=== PATIENT | female | born 1930 | race Caucasian/White ===

== ENCOUNTER 2016-06-30 01:20 | Emergency (ER) | payer MEDICARE, OTHER | END 2016-06-30 03:08 | disposition home or self-care (01) | DX: R10.13 Epigastric pain (principal); F03.90 Unspecified dementia, unspecified severity, without behavioral disturbance, psychotic disturbance, mood disturbance, and anxiety; Z85.828 Personal history of other malignant neoplasm of skin ==

== ENCOUNTER 2016-07-11 23:07 | Outpatient (CLI) | payer MEDICARE, OTHER | END 2016-07-11 23:08 | disposition critical access hospital (66) | DX: R41.82 Altered mental status, unspecified (principal) | CPT/HCPCS: A0425; A0429 ==

== ENCOUNTER 2016-07-11 23:30 | Emergency (ER) | payer MEDICARE, OTHER | END 2016-07-12 02:38 | disposition home or self-care (01) | DX: R45.1 Restlessness and agitation (principal); G30.9 Alzheimer's disease, unspecified; F02.81 Dementia in other diseases classified elsewhere, unspecified severity, with behavioral disturbance | CPT/HCPCS: 36415; 80048; 80306; 81001; 84443; 85025; 99283; 99284; G0480 ==

== ENCOUNTER 2016-10-01 12:00 | Outpatient (CLI) | payer MEDICARE, OTHER | END 2016-10-01 12:01 | disposition critical access hospital (66) | LOC: EMS 12:00 | PROVIDERS: ATTEND Surgery | DX: R55 Syncope and collapse (principal) | CPT/HCPCS: A0425; A0429 ==

== ENCOUNTER 2016-10-01 12:19 | Inpatient (IN) | payer MEDICARE, OTHER ==
--- NOTE | 2016-10-01 12:30 | ED Physician Documentation ---
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 denies: Focal weakness, Numbness, Seizure (none reported), Headache, Head injury Endocrine: denies: Easy bruising / bleeding Immunocompromised: denies: Immunocompromised PD PAST MEDICAL HISTORY - Past Medical History Cardiovascular: None Respiratory: None Neuro: Other Endocrine/Autoimmune: None GI: GI bleed : Frequency HEENT: None Psych: Depression, Anxiety Musculoskeletal: None Derm: None - Past Surgical History Past Surgical History: Yes General: Colonoscopy Ortho: Rotator cuff repair /ESCORT BLIND: Dilation and currettage HEENT: Tonsil/Adenoidectomy Derm: Skin cancer surgery - Present Medications Home Medications: Ambulatory Orders Medication Instructions Recorded Confirmed No Known Home Medications [No 06/30/16 10/01/16 Known Home Medications] - Allergies Allergies/Adverse Reactions: Allergies Allergy/AdvReac Type Severity Reaction Status Date / Time No Known Drug Allergies Allergy Verified 10/01/16 12:25 - Social History Does the pt smoke?: No Smoking Status: Former smoker Does the pt drink ETOH?: Yes Does the pt have substance abuse?: No - Immunizations Immunizations are current?: Yes - POLST Patient has POLST: No PD ED PE NORMAL - Vitals Vital signs reviewed: Yes - General General: No: Alert and 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 (confused, knows only her name) - HEENT HEENT: Atraumatic, PERRL - Neck Neck: Supple, no meningeal sign, No bony TTP - Cardiac Cardiac: RRR. 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 No : Alert and 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 Results - Vitals Vitals: Vital Signs - 24 hr 10/01/16 10/01/16 10/01/16 12:22 13:54 14:05 Temperature 36.7 C Heart Rate 68 55 L Respiratory 18 10 L Rate Blood Pressure 160/79 H 173/61 H O2 Saturation 99 100 10/01/16 10/01/16 14:39 15:36 Temperature Heart Rate 56 L 54 L Respiratory 18 18 Rate Blood Pressure 161/85 H 160/69 H O2 Saturation 100 100 Oxygen O2 Source Room air - EKG (time done) 1230 Rate: Rate (enter#) (58) Rhythm: NSR [place]: Normal Intervals: Normal RI Ischemia: Normal ST segments Other comments: Other comments (no delat wave) - Labs Labs: Laboratory Tests 10/01/16 10/01/16 10/01/16 12:31 12:31 12:31 WBC 7.5 RBC 4.69 Hgb 14.2 Hct 42.0 MCV 89.4 MCH 30.3 MCHC 33.9 RDW 13.5 Plt Count 218 MPV 9.3 Neut # 4.2 Lymph # 2.4 [place] # 0.6 Eos # 0.2 Baso # 0.1 Absolute Nucleated RBC 0.00 Nucleated RBCs 0.1 Sodium 142 Potassium 4.3 Chloride 104 Carbon Dioxide 30 Anion Gap 8.0 BUN 20 Creatinine 0.9 Estimated GFR (MDRD) 59 L Glucose 77 Calcium 9.9 Troponin I < 0.04 - Rads (name of study) CTH Radiology: See rad report (atrophic dz) CXR Radiology: See rad report (no acute) PD MEDICAL DECISION MAKING - ED course ED course: recurrent syncope and new heart murmur - will admit for tele and echoi still waiting for CXR and urine to rout infectious source to explain AMS fell several X and AMS so got CTH - No acute process Departure - Departure Disposition: ED Place in Observation Clinical Impression: Altered mental status Syncope Qualifiers: Syncope type: unspecified Qualified Code(s): R55 - Syncope and collapse Condition: Good
[2016-10-01 12:44] LABS: BASOPHILS # (AUTO) 0.1 10^3/uL (0.0-0.1); EOSINOPHILS # (AUTO) 0.2 10^3/uL (0.0-0.7); HGB - HEMOGLOBIN 14.2 g/dL (12.0-16.0); LYMPHOCYTES # (AUTO) 2.4 10^3/uL (1.5-3.5); LYMPHOCYTES % (AUTO) 32.6 %; MEAN CORPUSCULAR HEMOGLOBIN 30.3 pg (27.0-31.0); MEAN CORPUSCULAR HGB CONC 33.9 g/dL (32.0-36.0); MEAN CORPUSCULAR VOLUME 89.4 fL (81.0-99.0); MEAN PLATELET VOLUME 9.3 fL (7.9-10.8); MONOCYTES # (AUTO) 0.6 10^3/uL (0.0-1.0); NEUTROPHILS # (AUTO) 4.2 10^3/uL (1.5-6.6); NEUTROPHILS % (AUTO) 56.4 %; NUCLEATED RED BLOOD CELLS AUTO 0.1 /100WBC; RED BLOOD COUNT 4.69 10^6/uL (4.20-5.40); RED CELL DISTRIBUTION WIDTH 13.5 % (12.0-15.0); UNCORRECTED WHITE BLOOD COUNT 7.5 x10^3/uL; WHITE BLOOD COUNT 7.5 x10^3/uL (4.8-10.8)
[2016-10-01 12:54] LABS: CALCIUM 9.9 mg/dL (8.5-10.3); CREATININE 0.9 mg/dL (0.4-1.0); POTASSIUM 4.3 mmol/L (3.5-5.0)
[2016-10-01] MEDS ORDERED: SODIUM CHLORIDE 0.9% 500 ML IV ONE (14:15)
--- NOTE | 2016-10-01 14:49 | CT Preliminary Report ---
Exam: CT Head W/O IMPRESSION: Generalized age-related cortical atrophic changes without evidence of acute intracranial abnormality. [facility] SITE ID: [id number]
--- NOTE | 2016-10-01 14:51 | CT Report ---
EXAM: CT HEAD EXAM DATE: 10/01/2016 01:12 PM. CLINICAL HISTORY: Recurrent syncope. COMPARISON: 11/11/2015. TECHNIQUE: Multiaxial CT images were obtained from the foramen magnum to the vertex. IV contrast: Non e. Reformats: Coronal. In accordance with CT protocol optimization, one or more of the following dose reduction techniques w ere utilized for this exam: automated exposure control, adjustment of mA and/or KV based on patient s ize, or use of iterative reconstructive technique. FINDINGS: Parenchyma: No intraparenchymal hemorrhage. No evidence of mass, midline shift, or CT findings of acu te infarction. Duarte-white differentiation is distinct. Extraaxial Spaces: Normal for age. No subdural or epidural collections identified. Ventricles: The ventricles and cortical sulci are enlarged, consistent with age-related tissue loss. Sinuses: Imaged paranasal sinuses, orbits, and mastoids show no significant abnormality. Bones: No evidence of fracture or calvarial defect. Other: Diffuse chronic microangiopathic white matter changes are evident. IMPRESSION: Generalized age-related cortical atrophic changes without evidence of acute intracranial abnormality. [facility] Referring Provider Line: [phone] SITE ID: [id number]
--- NOTE | 2016-10-01 15:22 | XRAY Preliminary Report ---
Exam: XR Chest 1 View IMPRESSION: Normal single view chest. [facility] SITE ID: [id number]
--- NOTE | 2016-10-01 15:24 | XRAY Report ---
EXAM: CHEST RADIOGRAPHY EXAM DATE: 10/01/2016 03:02 PM. CLINICAL HISTORY: Ams syncope. COMPARISON: None. TECHNIQUE: 1 view. FINDINGS: Lungs/Pleura: No focal opacities evident. No pleural effusion. No pneumothorax. Mediastinum: Within exam limitations, cardiomediastinal contour is normal. Other: None. IMPRESSION: Normal single view chest. [facility] Referring Provider Line: [phone] SITE ID: [id number]
[2016-10-01] MEDS ORDERED: ONDANSETRON 4 MG/2 ML VIAL IVP PRN (15:46)
[2016-10-01] MEDS ORDERED: SODIUM CHLORIDE FLUSH 0.9% 10 ML SYRINGE IVP PRN (15:46)
[2016-10-01] MEDS ORDERED: ACETAMINOPHEN 325 MG TABLET PO PRN (15:46)
[2016-10-01] MEDS ORDERED: HYDROcod/ACETAM 5/325 MG TABLET PO PRN (15:46)
[2016-10-01] MEDS: SODIUM CHLORIDE 0.9% 1,000 ML IV SCH (17:07)
[2016-10-01] MEDS: SODIUM CHLORIDE FLUSH 0.9% 10 ML SYRINGE IVP SCH (17:12)
[2016-10-01 22:34] LABS: BILIRUBIN,URINE NEGATIVE (NEGATIVE); PH,URINE 6.5 PH (5.0-7.5)
[2016-10-01 22:41] LABS: UA w/ MICROSCOPIC CHARGE YES; UR CULTURE IF IND INDICATED; WBC,URINE >25 /HPF (0-5)
[2016-10-01] MEDS ORDERED: cefTRIAXone 2 GM in SODIUM CHLORIDE 0.9% MINIBAG 100 ML IV SCH (23:00)
[2016-10-01] MEDS ORDERED: OLANZapine 10 MG VIAL IM ONE (23:59)
[2016-10-02] MEDS ORDERED: WATER FOR INJECTION,STERILE 10 ML ONE (00:09)
[2016-10-02] MEDS: SODIUM CHLORIDE FLUSH 0.9% 10 ML SYRINGE IVP SCH (05:52)
[2016-10-02 06:02] LABS: BASOPHILS # (AUTO) 0.1 10^3/uL (0.0-0.1); BASOPHILS % (AUTO) 0.8 %; EOSINOPHILS # (AUTO) 0.2 10^3/uL (0.0-0.7); EOSINOPHILS % (AUTO) 2.9 %; HCT - HEMATOCRIT 44.1 % (37.0-47.0); HGB - HEMOGLOBIN 14.6 g/dL (12.0-16.0); LYMPHOCYTES # (AUTO) 2.7 10^3/uL (1.5-3.5); LYMPHOCYTES % (AUTO) 34.4 %; MEAN CORPUSCULAR HEMOGLOBIN 30.5 pg (27.0-31.0); MEAN CORPUSCULAR HGB CONC 33.2 g/dL (32.0-36.0); MEAN CORPUSCULAR VOLUME 91.9 fL (81.0-99.0); MEAN PLATELET VOLUME 10.2 fL (7.9-10.8); MONOCYTES # (AUTO) 0.7 10^3/uL (0.0-1.0); MONOCYTES % (AUTO) 9.6 %; NEUTROPHILS # (AUTO) 4.1 10^3/uL (1.5-6.6); NEUTROPHILS % (AUTO) 52.3 %; NUCLEATED RED BLOOD CELLS AUTO 0.1 /100WBC; RED CELL DISTRIBUTION WIDTH 13.8 % (12.0-15.0); UNCORRECTED WHITE BLOOD COUNT 7.8 x10^3/uL; WHITE BLOOD COUNT 7.8 x10^3/uL (4.8-10.8)
[2016-10-02 06:15] LABS: ALBUMIN/GLOBULIN RATIO 1.4 (1.0-2.2); BILIRUBIN,TOTAL 0.8 mg/dL (0.2-1.0); CALCIUM 9.3 mg/dL (8.5-10.3); CREATININE 0.9 mg/dL (0.4-1.0); MAGNESIUM 1.9 mg/dL (1.7-2.8); POTASSIUM 3.5 mmol/L (3.5-5.0); TOTAL PROTEIN 7.1 g/dL (6.7-8.2)
--- NOTE | 2016-10-02 07:58 | HISTORY & PHYSICAL EXAMINATION ---
DATE OF ADMISSION: 10/01/2016 CHIEF COMPLAINT: Syncope. HISTORY OF PRESENT ILLNESS: The patient is a very poor historian. She often says throughout the interview that she is just having a problem today, brain does not seem to be working correctly. Most of the history obtained is from the emergency department physician, the patient's is gone and is not reachable at this time. The patient reportedly had 3 episodes of passing out. No injury. No other symptoms associated except a few days ago she started to be a little bit tired and weak. The patient's individual syncopal episodes are not able to be elucidated at this time. REVIEW OF SYSTEMS: She has had no fever, chills. No sore throat. No cough. No chest pain or back pain. She has had no nausea, vomiting, diarrhea. No problems with urination according to . The rest of the complete review of systems is negative except as noted above. PAST MEDICAL HISTORY: Remarkable for a previous GI bleed an undetermined time ago, depression, anxiety, and dementia. PAST SURGICAL HISTORY: She has had a colonoscopy, rotator cuff repair, D and C, tonsillectomy and adenoidectomy, skin cancer surgery. MEDICATIONS: She is not taking any medications. ALLERGIES: NONE. SOCIAL HISTORY: She did smoke some time ago. She still drinks some alcohol but it is not every day. The patient was raised in [place] until age 12, moved to [place]. 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 She had 2 boys. FAMILY HISTORY: No diabetes. There is heart disease in the family on both sides. No cancer that she knows of. Again, the reliability of this information is uncertain. PHYSICAL EXAMINATION GENERAL: The patient is pleasant, interactive but only knows who she is, not clear where she is or anything about her situation, and does not know that she had even the passing out episodes and it appears to be a surprise to her. She is a well-developed and well-nourished, slender lady who appears stated age. VITAL SIGNS: 36.7, 68, 18, 160/79, O2 saturation 99% on room air. EYES: EOMs within normal limits, PERRL, nonicteric. MOUTH AND THROAT: Fair dentition. Moist mucous membranes. No other pathology of the mouth or pharynx. NECK: No lymphadenopathy, no thyromegaly, no JVD or bruits either. CHEST WALL: Nontender. Symmetric. No breast exam done. HEART: She has a systolic murmur along the left sternal border that extends out to the apex. The patient's pulses are equal. LUNGS: Clear, good air movement bilaterally. No wheezes, rales, or rhonchi. ABDOMEN: Soft, flat, no tenderness. No hepatosplenomegaly or masses appreciated. RECTAL/GENITAL: Exam not done. VASCULAR: She has no appreciated pulses at the posterior tibial. No cyanosis. Normal capillary refill. NEURO: Cognition is impaired as noted above. No focal deficits. Motor normal. Sensory normal. Gait not tested. SKIN: Dry. No suspicious lesions or dermatitis on limited exam. LABORATORY: White count 7.5, 14 and 42 hemoglobin and hematocrit, platelets 218 , sodium 142, potassium 4.3, chloride 104, CO2 of 30, BUN 20, creatinine 0.9, glucose 77, calcium 9.9, troponin less than 0.04. Urine has not been collected. EKG: Normal sinus rhythm, normal axis, normal CA, normal ST segments. CHEST X-RAY: No acute changes. Cardiopulmonary disease. SUMMARY: The patient is an 86-year-old female, demented, poor historian who according to had 3 episodes of passing out today. The etiology is unclear. The patient is placed in observation for further studies. 1. Syncope. 2. Hypertension. 3. Dementia. DISCUSSION/DECISION MAKING 1. Syncope. The patient will have telemetry and echocardiogram. Does not appear to be a seizure disorder, but is likely. 2. Hypertension. Will be monitored and medications given if there is excessive rise in her systolic blood pressure. 3. Dementia. The patient is at risk for falls and behavioral changes, which will need to be monitored. Need to also get additional history from the . Will also get a urinalysis to determine if the patient has an infection that may be causing the recent weakness and fatigue. HOSPITAL ISSUES 1. Unable to ascertain code status so she is FULL CODE. 2. Venous thromboembolism prophylaxis will be enoxaparin. 3. Diet will be regular. 4. Activity will be assisted with nursing aides. 5. Tubes and lines, will just have a peripheral IV at this time. 6. Admission status. She is placed in observation, expected to be less than 2 nights. 7. Suspected length of stay is 1 night. 8. Disposition is expected to be home with her . May need to have a discussion about placement in the near future with family. JOB #: [id number] EXT JOB #:[id number] KITTY
[2016-10-02] MEDS ORDERED: ENOXAPARIN 40 MG/0.4 ML SYRINGE SUBQ SCH (09:00)
[2016-10-02] MEDS ORDERED: POLYETHYLENE GLYCOL 3350 17 GM PACKET PO SCH (09:00)
[2016-10-02] MEDS: SODIUM CHLORIDE 0.9% 1,000 ML IV SCH (09:12)
[2016-10-02 09:50] VITALS: BP 159/79
--- NOTE | 2016-10-02 10:42 | Discharge Plan ---
Discharge Plan Disposition: 01 Home, Self Care Condition: Fair Prescriptions: Ciprofloxacin HCl [Cipro] 250 mg PO BID #10 tablet Diet: Regular Activity Restrictions: Activity as Tolerated Shower Restrictions: No Driving Restrictions: Yes (no driving) Instruction Topics: UTI Additional Instructions or Follow Up instructions: drink extra water each day. Take the pi;lls for the bladder infection antil gone. See Dr. Vasquez in the next 7-10 days. Thank you, Dr. Solares No Smoking: If you smoke, Please STOP! Call for help. Follow-up with: Landy Vasquez MD [Primary Care Provider] - 2 Weeks
--- NOTE | 2016-10-02 12:04 | DISCHARGE SUMMARY ---
DATE OF ADMISSION: 10/01/2016 DATE OF DISCHARGE: 10/02/2016 PRIMARY CARE PHYSICIAN: Landy Vasquez MD ADMISSION DIAGNOSES 1. Syncope. 2. Hypertension. 3. Dementia. DISCHARGE DIAGNOSES 1. Syncope of ruled out by history. 2. Generalized weakness, transient, resolved. 3. Hypertension. 4. Dementia, moderate. SPECIAL PROCEDURES: Head CT. IMPRESSION: Generalized age-related cortical atrophy without evidence of acute intracranial abnormali ty. Cardiovascular echo was postponed. HOSPITAL COURSE AND MANAGEMENT: The initial presentation, hospital emergency evaluation, and hospital ist plan are well described in the history and physical, see copy of same. SUMMARY: This is a patient, an 86-year-old female, demented, per her surgeon according to her , had 3 episodes of passing out today. Etiology unclear. The patient is placed on observation for fur ther studies. HOSPITAL COURSE: The patient had no medical problems. She did not sleep through the night, was up and down and despite 5 mg of Zyprexa did not affect her and she was with coaxing directible but had to b e monitored with 1 on 1 observation because of her behavior and risk for fall. The history was clara quiroz in the morning. says she never had any fainting spell, had no fall, she just said she fel t faint at one point. He called to talk to her doctor, doctor was out for the weekend and called the EMS. EMS came, evaluated her and brought her to the hospital. Therefore, she had no syncope and the e chocardiogram was therefore canceled. The telemetry did not display any sustained abnormal rhythms. T he patient's urine collected after her stay in the emergency department was positive for nitrates, gr eater than 25 WBCs, many bacteria. She has a history of urinary tract infections according to the hus band, and she is started on Cipro 250 mg b.i.d. for 5 days. The patient is taking no other medication s on discharge. ALLERGIES: SHE HAS NO KNOWN ALLERGIES. The patient was examined on day of discharge and found ready for discharge. LABORATORY DATA: White count 7.4, 14 and 44 hemoglobin and hematocrit, platelets are 204. Sodium 142, potassium 3.5, chloride 106, CO2 of 25, BUN 19, creatinine 0.9. The patient's glucose is 80, calcium is 9.3, albumin 4.1. Culture is pending. VITAL SIGNS: 36.4, 60, 159/79, 18, 94 room air saturation. The patient is very active and wanting to move without actual purpose as she had all might and needed 1-on-1 surveillance. The patient is to fo llow up with Dr. Vasquez after she finishes the Cipro which she will take twice a day for 5 days. Time spent in discharge activity less than 30 minutes and patient was examined on the day of discharg eFernando JOB #: [id number] EXT JOB #:[id number]
== END 2016-10-02 10:55 | disposition home or self-care (01) | DRG 312 ==
LOC: EDUNIT# → ED 12:19 → MS 15:46
PROVIDERS: ADMIT Internal Medicine; ATTEND Internal Medicine
DX: R55 Syncope and collapse (principal); R41.82 Altered mental status, unspecified; I10 Essential (primary) hypertension; F03.90 Unspecified dementia, unspecified severity, without behavioral disturbance, psychotic disturbance, mood disturbance, and anxiety; R53.1 Weakness; Z87.891 Personal history of nicotine dependence
CPT/HCPCS: 36415; 51701; 70450; 71010; 80048; 80053; 81001; 81003; 83735; 84484; 85025; 87077; 87086; 93005; 93010; 96360; 99284; 99285

== ENCOUNTER 2016-11-02 23:28 | Outpatient (CLI) | payer MEDICARE, OTHER | END 2016-11-02 23:29 | disposition critical access hospital (66) | LOC: EMS 23:28 | PROVIDERS: ATTEND Surgery | DX: R41.82 Altered mental status, unspecified (principal) | CPT/HCPCS: A0425; A0429 ==

== ENCOUNTER 2016-11-02 23:54 | Emergency (ER) | payer MEDICARE, OTHER ==
--- NOTE | 2016-11-03 00:51 | ED Physician Documentation ---
PD HPI ALTERED MENTAL STATUS - Stated complaint Stated Complaint: AMS - Chief complaint Chief Complaint: UTI - History obtained from History obtained from: Patient, Family (spouse) - History of Present Illness Timing - onset: Today (this evening) Timing - duration: Hours Timing - details: Gradual onset Quality / character: Confused, Disoriented, Memory Loss, Agitated [place] status: Alert and 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 (h/o memory loss, but spouse reports she has generally been oriented x 3), Independent Similar symptoms before: Diagnosis (dementia) Recently seen: Emergency Dept - Additional information Additional information: patient presents to ED without c/o but recognizes that her spouse was concerned about her behavior this evening. Per spouse (in ED at bedside), patient became confused as they were at home preparing dinner. He decided to take her to a restaurant to eat, and initially she seemed to improve, but upon returning home, she became increasingly confused and then agitated, and thus he called 911. Patient has had previous ED visits, including last month, for similar problems. Review of Systems Constitutional: reports: Reviewed and negative Cardiac: reports: Reviewed and negative Respiratory: reports: Reviewed and negative GI: reports: Reviewed and negative : denies: Dysuria, Frequency Neurologic: reports: Confused, Altered mental status. 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 HEENT: Tonsil/Adenoidectomy Derm: Skin cancer surgery - Allergies Allergies/Adverse Reactions: Allergies Allergy/AdvReac Type Severity Reaction Status Date / Time No Known Drug Allergies Allergy Verified 10/01/16 12:25 - Social History Does the pt smoke?: No Smoking Status: Former smoker Does the pt drink ETOH?: Yes Does the pt have substance abuse?: No - Immunizations Immunizations are current?: Yes - POLST Patient has POLST: No PD ED PE NORMAL - Vitals Vital signs reviewed: Yes - General General: Alert and 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 (patient is pleasant and conversant but exhibits memory loss (she does not know why she is in ED; does not recall being in this ED previously including no recollection of admission last month)), No acute distress, Well developed/nourished - HEENT HEENT: PERRL, EOMI, Moist mucous membranes - Neck Neck: Supple, no meningeal sign - Cardiac Cardiac: RRR, No murmur - Respiratory Respiratory: No respiratory distress, Clear bilaterally - Abdomen Abdomen: Soft, Non tender - Derm Derm: Normal color, Warm and dry - Neuro Neuro: Alert and 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, 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, No motor deficit, No sensory deficit, Normal speech - Psych Psych: Normal mood, Normal affect Results - Vitals Vitals: Oxygen O2 Source Room air - Labs Labs: Laboratory Tests 11/03/16 11/03/16 11/03/16 01:59 01:59 02:07 WBC 7.8 RBC 4.67 Hgb 14.0 Hct 42.1 MCV 90.2 MCH 30.1 MCHC 33.3 RDW 13.8 Plt Count 206 MPV 9.3 Neut # 4.3 Lymph # 2.6 [place] # 0.6 Eos # 0.3 Baso # 0.1 Absolute Nucleated RBC 0.01 Nucleated RBCs 0.1 Sodium 138 Potassium 3.7 Chloride 102 Carbon Dioxide 28 Anion Gap 8.0 BUN 23 H Creatinine 1.1 H Estimated GFR (MDRD) 47 L Glucose 92 Lactic Acid 0.4 L Calcium 9.2 Urine Color Urine Clarity Urine pH Ur Specific [place] Urine Protein Urine Glucose (UA) Urine Ketones Urine Occult Blood Urine Nitrite Urine Bilirubin Urine Urobilinogen Ur Leukocyte Esterase Ur Microscopic Review Urine Culture Comments 11/03/16 02:40 WBC RBC Hgb Hct MCV MCH MCHC RDW Plt Count MPV Neut # Lymph # [place] # Eos # Baso # Absolute Nucleated RBC Nucleated RBCs Sodium Potassium Chloride Carbon Dioxide Anion Gap BUN Creatinine Estimated GFR (MDRD) Glucose Lactic Acid Calcium Urine Color YELLOW Urine Clarity CLEAR Urine pH 6.0 Ur Specific [place] 1.010 Urine Protein NEGATIVE Urine Glucose (UA) NEGATIVE Urine Ketones NEGATIVE Urine Occult Blood TRACE-LYSE Urine Nitrite NEGATIVE Urine Bilirubin NEGATIVE Urine Urobilinogen 0.2 (NORMAL) Ur Leukocyte Esterase NEGATIVE Ur Microscopic Review NOT INDICATED Urine Culture Comments NOT INDICATED PD MEDICAL DECISION MAKING - ED course Complexity details: reviewed old records, reviewed results, re-evaluated patient , considered differential, d/w patient, d/w family ED course: Patient remained calm and cooperative during ED stay. RN reported to me that after patient arrived, but prior to my assessment, patient gave her maiden name and had difficulty recalling that she was still . By the time of my evaluation, and during the remainder of her stay, she was awake, alert, oriented , conversant and pleasant. She asked appropriate questions and became appropriately concerned when I explained to her that she seems to be having difficulty with her memory. I then had a discussion with her outside of the room regarding disposition. I offered to hold her until the morning for a SW consult, but that this would be appropriate if he did not feel comfortable taking her home (specifically if he feels that she is an immediate danger to herself, others (including him), or if he feels he can no longer take care of her at home and thus to consider placement to NH). He feels comfortable taking her home, will return (call 911) if she worsens, and will contact her PMD to discuss options for home health or placement at NH. He says that patient was clearly unhappy with her PMD when the diagnosis of Alzheimer's dementia was raised. Departure - Departure Disposition: 01 Home, Self Care Clinical Impression: Altered mental status Condition: Good Instructions: ED Confusion Follow-Up: Landy Vasquez MD [Provider Admit Priv/Credential] - Discharge Date/Time: 11/03/16 04:42
[2016-11-03 02:14] VITALS: BP 187/103
[2016-11-03 02:18] LABS: BASOPHILS # (AUTO) 0.1 10^3/uL (0.0-0.1); BASOPHILS % (AUTO) 0.9 %; EOSINOPHILS # (AUTO) 0.3 10^3/uL (0.0-0.7); EOSINOPHILS % (AUTO) 3.2 %; HCT - HEMATOCRIT 42.1 % (37.0-47.0); LYMPHOCYTES # (AUTO) 2.6 10^3/uL (1.5-3.5); LYMPHOCYTES % (AUTO) 32.9 %; MEAN CORPUSCULAR HEMOGLOBIN 30.1 pg (27.0-31.0); MEAN CORPUSCULAR HGB CONC 33.3 g/dL (32.0-36.0); MEAN CORPUSCULAR VOLUME 90.2 fL (81.0-99.0); MEAN PLATELET VOLUME 9.3 fL (7.9-10.8); MONOCYTES # (AUTO) 0.6 10^3/uL (0.0-1.0); MONOCYTES % (AUTO) 8.2 %; NEUTROPHILS # (AUTO) 4.3 10^3/uL (1.5-6.6); NEUTROPHILS % (AUTO) 54.8 %; NUCLEATED RED BLOOD CELLS AUTO 0.1 /100WBC; RED BLOOD COUNT 4.67 10^6/uL (4.20-5.40); RED CELL DISTRIBUTION WIDTH 13.8 % (12.0-15.0); UNCORRECTED WHITE BLOOD COUNT 7.8 x10^3/uL; WHITE BLOOD COUNT 7.8 x10^3/uL (4.8-10.8)
[2016-11-03 02:19] LABS: CALCIUM 9.2 mg/dL (8.5-10.3); CREATININE 1.1 mg/dL (0.4-1.0); POTASSIUM 3.7 mmol/L (3.5-5.0)
[2016-11-03 02:44] LABS: BILIRUBIN,URINE NEGATIVE (NEGATIVE)
[2016-11-03 02:45] LABS: UA CHARGE (STRIP ONLY) YES; UR CULTURE IF IND NOT INDICATED
== END 2016-11-03 04:42 | disposition home or self-care (01) ==
LOC: EDUNIT# → ED 23:54
DX: R41.82 Altered mental status, unspecified (principal); F03.90 Unspecified dementia, unspecified severity, without behavioral disturbance, psychotic disturbance, mood disturbance, and anxiety
CPT/HCPCS: 36415; 80048; 81001; 81003; 83605; 85025; 87086; 99283

== ENCOUNTER 2016-11-13 10:11 | Outpatient (CLI) | payer MEDICARE, OTHER | END 2016-11-13 10:12 | disposition critical access hospital (66) | LOC: EMS 10:11 | PROVIDERS: ATTEND Surgery | DX: R41.0 Disorientation, unspecified (principal) | CPT/HCPCS: A0425; A0429 ==

== ENCOUNTER 2016-11-13 10:33 | Emergency (ER) | payer MEDICARE, OTHER ==
--- NOTE | 2016-11-13 10:49 | ED Physician Documentation ---
PD HPI ALTERED MENTAL STATUS - Stated complaint Stated Complaint: MHE - Chief complaint Chief Complaint: MHE - History obtained from History obtained from: Patient, Family (), EMS - History of Present Illness Timing - duration: Months (patient has had progressive forgetfulness and some wandering from house worsening over many months to 1-2 years. having trouble watching her continually recently. They live alone at home. Today patient wandered out of house and could not find her for an hour. Neighbors reported her wandering around and called EMS.) Timing - details: Gradual onset, Still present, Waxing and waning Quality / character: Disoriented, Memory Loss, Agitated (mildly at times) Associated symptoms: No: Fever, Headache, Dyspnea, Cough, Focal weakness Contributing factors: No: Recent med change, Recent illness, Recent injury Basline status: Ambulatory. No: Alert and 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 (not to time) Similar symptoms before: Diagnosis (dementia) Recently seen: Not recently seen Review of Systems Unable to obtain: Dementia, Other (info from as well) Constitutional: denies: Fever Nose: denies: Congestion Throat: denies: Sore throat Cardiac: denies: Chest pain / pressure Respiratory: denies: Cough GI: denies: Vomiting, Diarrhea : denies: Dysuria Musculoskeletal: denies: Extremity swelling Neurologic: denies: Generalized weakness, Focal weakness, Numbness, Syncope, Headache, Head injury Endocrine: denies: Weight loss Immunocompromised: denies: Immunocompromised PD PAST MEDICAL HISTORY - Past Medical History Past Medical History: Yes Cardiovascular: None Respiratory: None Neuro: Other Endocrine/Autoimmune: None GI: GI bleed : Frequency HEENT: None Psych: Depression, Anxiety Musculoskeletal: None Derm: None - Past Surgical History Past Surgical History: Yes General: Colonoscopy 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 HEENT: Tonsil/Adenoidectomy Derm: Skin cancer surgery - Allergies Allergies/Adverse Reactions: Allergies Allergy/AdvReac Type Severity Reaction Status Date / Time No Known Drug Allergies Allergy Verified 10/01/16 12:25 - Social History Does the pt smoke?: No Smoking Status: Former smoker Does the pt drink ETOH?: Yes Does the pt have substance abuse?: No - Family History Family history: reports: Non contributory - Immunizations Immunizations are current?: Yes - POLST Patient has POLST: No PD ED PE NORMAL - Vitals Vital signs reviewed: Yes - General General: No acute distress, Well developed/nourished, Other (oriented to person and place, she is not sure of time. Does not remember her address. Knows she lives in a house with her . 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, No motor deficit, No sensory deficit, Normal speech - Psych Psych: Normal mood, Normal affect Results - Vitals Vitals: Vital Signs - 24 hr 11/13/16 11/13/16 11/13/16 10:35 13:43 17:47 Temperature 36.9 C Heart Rate 110 H 78 68 Respiratory 18 18 18 Rate Blood Pressure 161/73 H 171/90 H 135/72 H O2 Saturation 98 97 97 Oxygen O2 Source Room air - Labs Labs: Laboratory Tests 11/13/16 11/13/16 11/13/16 11:00 11:00 11:00 WBC 6.2 RBC 4.72 Hgb 14.2 Hct 42.8 MCV 90.6 MCH 30.2 MCHC 33.3 RDW 13.9 Plt Count 224 MPV 9.0 Neut # 3.3 Lymph # 2.2 [place] # 0.5 Eos # 0.1 Baso # 0.1 Absolute Nucleated RBC 0.00 Nucleated RBCs 0.1 Manual Slide Review Indicated Platelet Estimate NORMAL (130-450,000) Platelet Morphology 2+ GIANT PLATELETS RBC Morph Micro Appear NORMAL APPEARANCE ESR Sodium 140 Potassium 4.0 Chloride 104 Carbon Dioxide 28 Anion Gap 8.0 BUN 20 Creatinine 1.0 Estimated GFR (MDRD) 52 L Glucose 93 Calcium 9.6 Magnesium 1.9 Total Bilirubin 0.9 AST 26 ALT 20 Alkaline Phosphatase 43 Total Protein 7.3 Albumin 4.0 Globulin 3.3 Albumin/Globulin Ratio 1.2 Lipase 32 Vitamin B12 995 H Urine Color Urine Clarity Urine pH Ur Specific [place] Urine Protein Urine Glucose (UA) Urine Ketones Urine Occult Blood Urine Nitrite Urine Bilirubin Urine Urobilinogen Ur Leukocyte Esterase Urine RBC Urine WBC Ur Squamous Epith Cells Urine Bacteria Ur Microscopic Review Urine Culture Comments 11/13/16 11/13/16 11:00 22:00 WBC RBC Hgb Hct MCV MCH MCHC RDW Plt Count MPV Neut # Lymph # [place] # Eos # Baso # Absolute Nucleated RBC Nucleated RBCs Manual Slide Review Platelet Estimate Platelet Morphology RBC Morph Micro Appear ESR 4 Sodium Potassium Chloride Carbon Dioxide Anion Gap BUN Creatinine Estimated GFR (MDRD) Glucose Calcium Magnesium Total Bilirubin AST ALT Alkaline Phosphatase Total Protein Albumin Globulin Albumin/Globulin Ratio Lipase Vitamin B12 Urine Color YELLOW Urine Clarity CLOUDY Urine pH 6.0 Ur Specific [place] 1.020 Urine Protein NEGATIVE Urine Glucose (UA) NEGATIVE Urine Ketones NEGATIVE Urine Occult Blood TRACE-LYSE Urine Nitrite POSITIVE H Urine Bilirubin NEGATIVE Urine Urobilinogen 0.2 (NORMAL) Ur Leukocyte Esterase MODERATE H Urine RBC 0-5 Urine WBC >25 H Ur Squamous Epith Cells MANY Squamous H Urine Bacteria Many H Ur Microscopic Review INDICATED Urine Culture Comments NOT INDICATED - Rads (name of study) head CT Radiology: Prelim report reviewed (age related changes; no acute process) PD MEDICAL DECISION MAKING - ED course Complexity details: considered differential, d/w patient, d/w family ( - would like to get placement for the patient as she has had more wandering and some agitation at times. She has Rx of meds from PMD but she does not like to take it, per . Unknown what the med is. ), d/w area development consultant (Development Mechanic , Anayeli, will talk with patient and attempt placement. ), other ([facility] will be able to send out nurse to assess her in the AM (9 AM). Family would like [facility], but they did not have admin there today. Can try in AM, particularly if [facility] does not have space. So patient will stay the night as spouse not comfortable bringing her home with the increased wandering and some agitation. ) Departure - Departure Clinical Impression: Wandering behavior Dementia Qualifiers: Dementia type: unspecified type Dementia behavioral disturbance: without behavioral disturbance Qualified Code(s): F03.90 - Unspecified dementia without behavioral disturbance High blood pressure Qualifiers: Hypertension type: unspecified secondary hypertension Qualified Code(s): I15.9 - Secondary hypertension, unspecified Condition: Stable Record reviewed to determine appropriate education?: Yes Instructions: ED Dementia Caregiver Support
[2016-11-13 11:13] LABS: BASOPHILS # (AUTO) 0.1 10^3/uL (0.0-0.1); BASOPHILS % (AUTO) 1.2 %; EOSINOPHILS # (AUTO) 0.1 10^3/uL (0.0-0.7); EOSINOPHILS % (AUTO) 2.3 %; HCT - HEMATOCRIT 42.8 % (37.0-47.0); HGB - HEMOGLOBIN 14.2 g/dL (12.0-16.0); LYMPHOCYTES # (AUTO) 2.2 10^3/uL (1.5-3.5); LYMPHOCYTES % (AUTO) 35.7 %; MEAN CORPUSCULAR HEMOGLOBIN 30.2 pg (27.0-31.0); MEAN CORPUSCULAR HGB CONC 33.3 g/dL (32.0-36.0); MEAN CORPUSCULAR VOLUME 90.6 fL (81.0-99.0); MONOCYTES # (AUTO) 0.5 10^3/uL (0.0-1.0); NEUTROPHILS # (AUTO) 3.3 10^3/uL (1.5-6.6); NEUTROPHILS % (AUTO) 52.8 %; NUCLEATED RED BLOOD CELLS AUTO 0.1 /100WBC; RED BLOOD COUNT 4.72 10^6/uL (4.20-5.40); RED CELL DISTRIBUTION WIDTH 13.9 % (12.0-15.0); UNCORRECTED WHITE BLOOD COUNT 6.2 x10^3/uL; WHITE BLOOD COUNT 6.2 x10^3/uL (4.8-10.8)
[2016-11-13 11:17] LABS: ALBUMIN/GLOBULIN RATIO 1.2 (1.0-2.2); BILIRUBIN,TOTAL 0.9 mg/dL (0.2-1.0); CALCIUM 9.6 mg/dL (8.5-10.3); MAGNESIUM 1.9 mg/dL (1.7-2.8); TOTAL PROTEIN 7.3 g/dL (6.7-8.2)
[2016-11-13 11:34] LABS: PLATELET ESTIMATE, MANUAL NORMAL (130-450,000) (NORMAL); PLATELET MORPHOLOGY 2+ GIANT PLATELETS (NORMAL)
--- NOTE | 2016-11-13 11:55 | CT Preliminary Report ---
Exam: CT Head W/O IMPRESSION: Generalized age-related cortical atrophic changes without evidence of acute intracranial bleed or hematoma. [facility] SITE ID: [id number]
--- NOTE | 2016-11-13 11:57 | CT Report ---
EXAM: CT HEAD EXAM DATE: 11/13/2016 11:40 AM. CLINICAL HISTORY: Progressive forgetful/confusion. COMPARISON: 10/01/2016. TECHNIQUE: Multiaxial CT images were obtained from the foramen magnum to the vertex. IV contrast: Non e. Reformats: Coronal. In accordance with CT protocol optimization, one or more of the following dose reduction techniques w ere utilized for this exam: automated exposure control, adjustment of mA and/or KV based on patient s ize, or use of iterative reconstructive technique. FINDINGS: Parenchyma: No intraparenchymal hemorrhage. No evidence of mass or midline shift. Duarte-white differen tiation is distinct. Extraaxial Spaces: Normal for age. No subdural or epidural collections identified. Ventricles: The ventricles and cortical sulci are enlarged, consistent with age-related tissue loss. Sinuses: Imaged paranasal sinuses, orbits, and mastoids show no significant abnormality. Bones: No evidence of fracture or calvarial defect. Other: Diffuse chronic microangiopathic white matter changes are evident. IMPRESSION: Generalized age-related cortical atrophic changes without evidence of acute intracranial bleed or hematoma. [facility] Referring Provider Line: [phone] SITE ID: [id number]
[2016-11-13] MEDS ORDERED: LORazepam 0.5 MG TABLET PO STA ×2 (13:14→23:28)
[2016-11-13] MEDS ORDERED: HALOPERIDOL 1 MG TABLET PO STA (13:15)
[2016-11-13] MEDS ORDERED: LORazepam 0.5 MG TABLET ONE ×2 (13:19→23:35)
[2016-11-13 22:10] LABS: BILIRUBIN,URINE NEGATIVE (NEGATIVE)
[2016-11-13 22:21] LABS: UA w/ MICROSCOPIC CHARGE YES
[2016-11-13 22:22] LABS: UR CULTURE IF IND NOT INDICATED; WBC,URINE >25 /HPF (0-5)
[2016-11-13] MEDS ORDERED: HALOPERIDOL 0.5 MG TABLET PO STA (23:29)
[2016-11-13] MEDS ORDERED: NITROFURANTOIN MACRO 100 MG CAPSULE PO ONE (23:35)
[2016-11-13] MEDS ORDERED: NITROFURANTOIN MACRO 100 MG CAPSULE PO SCH (23:45)
--- NOTE | 2016-11-14 07:36 | ED Physician Documentation ---
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 HEENT: Tonsil/Adenoidectomy Derm: Skin cancer surgery - Present Medications Home Medications: Ambulatory Orders Medication Instructions Recorded Confirmed Nitrofurantoin Monohyd/M-Cryst 100 mg PO BID #14 capsule 11/14/16 [Macrobid 100 mg Capsule] - Allergies Allergies/Adverse Reactions: Allergies Allergy/AdvReac Type Severity Reaction Status Date / Time No Known Drug Allergies Allergy Verified 10/01/16 12:25 - Social History Does the pt smoke?: No Smoking Status: Former smoker Does the pt drink ETOH?: Yes Does the pt have substance abuse?: No - Immunizations Immunizations are current?: Yes - POLST Patient has POLST: No Results - Vitals Vitals: Vital Signs - 24 hr 11/13/16 11/14/16 23:17 12:53 Temperature 36.5 C 36.8 C Heart Rate 66 77 Respiratory 20 16 Rate Blood Pressure 176/89 H 148/77 H O2 Saturation 99 99 Oxygen O2 Source Room air - Labs Labs: Laboratory Tests 11/13/16 11/13/16 11/13/16 11:00 11:00 11:00 WBC 6.2 RBC 4.72 Hgb 14.2 Hct 42.8 MCV 90.6 MCH 30.2 MCHC 33.3 RDW 13.9 Plt Count 224 MPV 9.0 Neut # 3.3 Lymph # 2.2 [place] # 0.5 Eos # 0.1 Baso # 0.1 Absolute Nucleated RBC 0.00 Nucleated RBCs 0.1 Manual Slide Review Indicated Platelet Estimate NORMAL (130-450,000) Platelet Morphology 2+ GIANT PLATELETS RBC Morph Micro Appear NORMAL APPEARANCE ESR Sodium 140 Potassium 4.0 Chloride 104 Carbon Dioxide 28 Anion Gap 8.0 BUN 20 Creatinine 1.0 Estimated GFR (MDRD) 52 L Glucose 93 Calcium 9.6 Magnesium 1.9 Total Bilirubin 0.9 AST 26 ALT 20 Alkaline Phosphatase 43 Total Protein 7.3 Albumin 4.0 Globulin 3.3 Albumin/Globulin Ratio 1.2 Lipase 32 Vitamin B12 995 H Urine Color Urine Clarity Urine pH Ur Specific [place] Urine Protein Urine Glucose (UA) Urine Ketones Urine Occult Blood Urine Nitrite Urine Bilirubin Urine Urobilinogen Ur Leukocyte Esterase Urine RBC Urine WBC Ur Squamous Epith Cells Urine Bacteria Ur Microscopic Review Urine Culture Comments 11/13/16 11/13/16 11:00 22:00 WBC RBC Hgb Hct MCV MCH MCHC RDW Plt Count MPV Neut # Lymph # [place] # Eos # Baso # Absolute Nucleated RBC Nucleated RBCs Manual Slide Review Platelet Estimate Platelet Morphology RBC Morph Micro Appear ESR 4 Sodium Potassium Chloride Carbon Dioxide Anion Gap BUN Creatinine Estimated GFR (MDRD) Glucose Calcium Magnesium Total Bilirubin AST ALT Alkaline Phosphatase Total Protein Albumin Globulin Albumin/Globulin Ratio Lipase Vitamin B12 Urine Color YELLOW Urine Clarity CLOUDY Urine pH 6.0 Ur Specific [place] 1.020 Urine Protein NEGATIVE Urine Glucose (UA) NEGATIVE Urine Ketones NEGATIVE Urine Occult Blood TRACE-LYSE Urine Nitrite POSITIVE H Urine Bilirubin NEGATIVE Urine Urobilinogen 0.2 (NORMAL) Ur Leukocyte Esterase MODERATE H Urine RBC 0-5 Urine WBC >25 H Ur Squamous Epith Cells MANY Squamous H Urine Bacteria Many H Ur Microscopic Review INDICATED Urine Culture Comments NOT INDICATED PD MEDICAL DECISION MAKING - ED course ED course: assumed care 7 AM 86 f with dementia not safe to live at home with her anymore seen by Dr Obrien yesterday, had labs, has UTI and was txed for same is boarding in ER pending placement by SW per notes [facility] will be coming at 0930 for an intake eval went to see pt she is awake and dressed sitting in a chair beside her bed she is bored and irritated but has no physical complaints at this time RRR CTAB ambulatory this is the 4th time in a year I have seen pt for similar situation - every time social work has been consulted and provided family with info about local resources ordered breakfast and awaiting [facility] eval seen by [facility] and [facility] SW to contact PMD Dr Vasquez for orders Departure - Departure Disposition: 01 Home, Self Care Clinical Impression: Wandering behavior Dementia Qualifiers: Dementia type: unspecified type Dementia behavioral disturbance: without behavioral disturbance Qualified Code(s): F03.90 - Unspecified dementia without behavioral disturbance High blood pressure Qualifiers: Hypertension type: unspecified secondary hypertension Qualified Code(s): I15.9 - Secondary hypertension, unspecified Urinary tract infection Qualifiers: Urinary tract infection type: acute cystitis Hematuria presence: without hematuria Qualified Code(s): N30.00 - Acute cystitis without hematuria Condition: Stable Instructions: ED Dementia Caregiver Support Prescriptions: Nitrofurantoin Monohyd/M-Cryst [Macrobid 100 mg Capsule] 100 mg PO BID #14 capsule Comments: Go to [facility] via ambulance and Dr Vasquez will send in orders Discharge Date/Time: 11/14/16 13:15
[2016-11-14] MEDS ORDERED: HALOPERIDOL 1 MG TABLET PO SCH (09:00)
[2016-11-14 12:53] VITALS: BP 148/77
== END 2016-11-14 13:15 | disposition home or self-care (01) ==
LOC: EDUNIT# → ED 10:33
DX: F03.90 Unspecified dementia, unspecified severity, without behavioral disturbance, psychotic disturbance, mood disturbance, and anxiety (principal); I15.9 Secondary hypertension, unspecified; N30.00 Acute cystitis without hematuria; Z87.891 Personal history of nicotine dependence
CPT/HCPCS: 36415; 70450; 80053; 81001; 82607; 83690; 83735; 85025; 85651; 99283; 99284; A9270; 81003; 87086

== ENCOUNTER 2016-11-14 13:18 | Outpatient (CLI) | payer MEDICARE, OTHER | END 2016-11-14 13:19 | disposition home or self-care (01) | LOC: EMS 13:18 | PROVIDERS: ATTEND Surgery | DX: F03.90 Unspecified dementia, unspecified severity, without behavioral disturbance, psychotic disturbance, mood disturbance, and anxiety (principal); N39.0 Urinary tract infection, site not specified | CPT/HCPCS: A0425; A0428 ==

== ENCOUNTER 2016-12-12 20:44 | Outpatient (CLI) | payer MEDICARE, OTHER | END 2016-12-12 20:45 | disposition home or self-care (01) | LOC: EMS 20:44 | PROVIDERS: ATTEND Surgery | DX: M25.551 Pain in right hip (principal); W18.30XA Fall on same level, unspecified, initial encounter; Y92.199 Unspecified place in other specified residential institution as the place of occurrence of the external cause | CPT/HCPCS: A0425; A0429 ==

== ENCOUNTER 2016-12-12 21:03 | Emergency (ER) | payer MEDICARE, OTHER ==
--- NOTE | 2016-12-12 22:14 | ED Physician Documentation ---
PD HPI LOWER EXT INJURY - Stated complaint Stated Complaint: GLF, RIGHT HIP AND LEG PAIN - Chief complaint Chief Complaint: Ext Problem - History obtained from History obtained from: Family (spouse (in ED room with patient)), Caregiver - History of Present Illness PD HPI LOW EXT INJURY LOCATION: Right, Hip Type of injury: Fall Where injury occurred: Other ([place]) Timing - onset: How many hours ago (approximately 1 hour [employer]IVE[employer]ER) Timing - details: Abrupt onset Improved by: Rest Worsened by: Moving - Additional information Additional information: from [place], reportedly had fall witnessed by other residents of the [place] facility ( but not by staff). Per witnesses to the fall, patient was yelling out in pain after she fell. 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 HEENT: Tonsil/Adenoidectomy Derm: Skin cancer surgery - Present Medications Home Medications: Ambulatory Orders Medication Instructions Recorded Confirmed Acetaminophen [Tylenol Extra 1 tab ORAL Q4H 12/12/16 12/12/16 Strength] Nitrofurantoin [Macrobid] 100 mg ORAL BID 12/12/16 12/12/16 QUEtiapine [SEROquel] 25 mg ORAL DAILY PM 12/12/16 12/12/16 - Allergies Allergies/Adverse Reactions: Allergies Allergy/AdvReac Type Severity Reaction Status Date / Time No Known Drug Allergies Allergy Verified 12/12/16 21:08 - Social History Does the pt smoke?: No Smoking Status: Former smoker Does the pt drink ETOH?: Yes Does the pt have substance abuse?: No - Immunizations Immunizations are current?: Yes - POLST Patient has POLST: No PD ED PE NORMAL - Vitals Vital signs reviewed: Yes - General General: No acute distress, Well developed/nourished, Other (drowsy, arousable to repeated verbal stimulus but answers are difficulty to understand, and are statements unrelated to question) - HEENT HEENT: Atraumatic, PERRL, EOMI - Neck Neck: Supple, no meningeal sign, No bony TTP - Cardiac Cardiac: RRR, No murmur - Respiratory Respiratory: No respiratory distress, Clear bilaterally - Abdomen Abdomen: Soft, Non tender - Extremities Extremities: No tenderness to palpate, No edema, Other (appears to have brief painful discomfort with passive right hip flexion) Results - Vitals Vitals: Vital Signs - 24 hr 12/12/16 12/13/16 21:06 00:53 Temperature 36.3 C L Heart Rate 68 70 Respiratory 18 18 Rate Blood Pressure 156/76 H 150/70 H O2 Saturation 97 Oxygen O2 Source Room air - Rads (name of study) right hip xrays Radiology: Prelim report reviewed, See rad report PD MEDICAL DECISION MAKING - ED course Complexity details: reviewed old records, reviewed results, re-evaluated patient , considered differential, d/w family Departure - Departure Disposition: 01 Home, Self Care Clinical Impression: Dementia, Pain of lower extremity Condition: Good Instructions: ED Fall Uncertain Cause, ED Contusion Hip Follow-Up: Landy Vasquez MD [Primary Care Provider] - Discharge Date/Time: 12/13/16 00:54
--- NOTE | 2016-12-12 23:25 | XRAY Preliminary Report ---
Exam: XR Hip w/Pelvis 2-3V RT IMPRESSION: No fracture identified. [facility] SITE ID: [id number]
--- NOTE | 2016-12-12 23:28 | XRAY Report ---
EXAM: FALL. RIGHT HIP PAIN. HIP AND PELVIS RADIOGRAPHY EXAM DATE: 12/12/2016 10:54 PM. HISTORY: Fall, pain. COMPARISONS: None. TECHNIQUE: 1 view of the pelvis and 1 view of the hip. FINDINGS: Bones: No traumatic or destructive bone abnormalities identified. 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 Joints: Degenerative narrowing of the right hip, otherwise the bilateral hip, pubis symphysis, and sa croiliac joints are preserved. Soft Tissues: Normal. No soft tissue swelling. IMPRESSION: No fracture identified. [facility] Referring Provider Line: [phone] SITE ID: [id number]
[2016-12-13 00:54] VITALS: BP 150/70
== END 2016-12-13 00:54 | disposition home or self-care (01) ==
LOC: EDUNIT# → ED 21:03
DX: G30.9 Alzheimer's disease, unspecified (principal); F02.80 Dementia in other diseases classified elsewhere, unspecified severity, without behavioral disturbance, psychotic disturbance, mood disturbance, and anxiety; M79.661 Pain in right lower leg; Z87.891 Personal history of nicotine dependence; Z91.81 History of falling
CPT/HCPCS: 99283

== ENCOUNTER 2016-12-13 00:52 | Outpatient (CLI) | payer MEDICARE, OTHER | END 2016-12-13 00:53 | disposition home or self-care (01) | LOC: EMS 00:52 | PROVIDERS: ATTEND Surgery | DX: F03.90 Unspecified dementia, unspecified severity, without behavioral disturbance, psychotic disturbance, mood disturbance, and anxiety (principal) | CPT/HCPCS: A0425; A0428 ==

== ENCOUNTER 2017-03-27 16:01 | Outpatient (CLI) | payer MEDICARE, OTHER | END 2017-03-27 16:02 | disposition short-term general hospital (02) | LOC: EMS 16:01 | PROVIDERS: ATTEND Surgery | DX: M25.552 Pain in left hip (principal); W19.XXXA Unspecified fall, initial encounter; Y92.129 Unspecified place in nursing home as the place of occurrence of the external cause | CPT/HCPCS: A0425; A0429 ==

== ENCOUNTER 2018-08-25 23:31 | Outpatient (CLI) | payer MEDICARE, OTHER | END 2018-08-25 23:32 | disposition critical access hospital (66) | LOC: EMS 23:31 | PROVIDERS: ATTEND Surgery | DX: S01.01XA Laceration without foreign body of scalp, initial encounter (principal); W06.XXXA Fall from bed, initial encounter; Y92.092 Bedroom in other non-institutional residence as the place of occurrence of the external cause | CPT/HCPCS: A0425; A0429 ==

== ENCOUNTER 2018-08-25 23:48 | Emergency (ER) | payer MEDICARE, OTHER ==
[2018-08-26] MEDS ORDERED: NEOMYCIN/POLYMYX/DEXAMETH OPHTH OINT EACHEYE STA (00:01)
--- NOTE | 2018-08-26 00:04 | ED Physician Documentation ---
PD HPI HEAD INJURY - Stated complaint Stated Complaint: FELL, HEAD LAC - Chief complaint Chief Complaint: Trauma Hd/Nk - History obtained from History obtained from: Patient, EMS - History of Present Illness Mechanism of head injury: Fell Where head injury occurred: Home Timing - onset: Today Location of injury: Right, Back Quality of pain: Pain Associated symptoms: No: LOC, AMS Symptoms improve with: Rest Symptoms worsen with: Palpation, Movement Contributing factors: No: Anticoagulated Similar symptoms before: Diagnosis (head injury) Recently seen: Other - Additional information Additional information: 87-year-old female resident of [facility] with advanced dementia has had a fall in her bedroom striking her head presumably on her nightstand she was attended to shortly after the fall as it was heard but not witnessed. The patient had no loss of consciousness she is not nauseated or vomiting. She has been recently treated for urinary tract infection with Macrobid and she has had a fall 8 days ago injuring her face and elbow. The patient is not able to provide much history with the exception of yes and no to where things hurt. 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 HEENT: Tonsil/Adenoidectomy Derm: Skin cancer surgery - Present Medications Home Medications: Ambulatory Orders Medication Instructions Recorded Confirmed Acetaminophen [Tylenol Extra 1 tab ORAL Q4H 12/12/16 12/12/16 Strength] Nitrofurantoin [Macrobid] 100 mg ORAL BID 12/12/16 12/12/16 QUEtiapine [SEROquel] 25 mg ORAL DAILY PM 12/12/16 12/12/16 Cefdinir 300 mg PO BID #20 capsule 08/26/18 Neomycin/Poly/Dexam Ophth Oint 1 gm EACHEYE TID #2 tube 08/26/18 [Maxitrol Ophth Oint] - Allergies Allergies/Adverse Reactions: Allergies Allergy/AdvReac Type Severity Reaction Status Date / Time No Known Drug Allergies Allergy Verified 12/12/16 21:08 - Social History Does the pt smoke?: No Smoking Status: Former smoker Does the pt drink ETOH?: Yes Does the pt have substance abuse?: No - Immunizations Immunizations are current?: Yes - POLST Patient has POLST: No PD ED PE NORMAL - Vitals Vital signs reviewed: Yes (hypertensive) - General General: No acute distress, Well developed/nourished, Other (laying with eyes closed thickly matted eyes. A dramatic picture of conjunctivitis. ) - HEENT HEENT: PERRL, EOMI, Other (dense yellow discharge from both eyes with inflamation/swelling of the conjunctiva. There is a bruise to the occiput that is bleeding without laceration. There is no step off or crepitance to suggest skull fracture and the area is swollen. There is a 3cm Y shaped laceration to the right moravian. 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, No motor deficit, No sensory deficit, Normal speech Eye Opening: To Voice Motor: Obeys Commands Verbal: Confused GCS Score: 13 - Psych Psych: Normal mood, Normal affect Results - Vitals Vitals: Vital Signs - 24 hr 08/25/18 23:56 Temperature 36.2 C L Heart Rate 85 Respiratory 18 Rate Blood Pressure 174/85 H O2 Saturation 95 Oxygen O2 Source Room air - Labs Labs: Laboratory Tests 08/26/18 00:30 Urine Color YELLOW Urine Clarity CLEAR Urine pH 7.5 Ur Specific [place] 1.010 Urine Protein NEGATIVE Urine Glucose (UA) NEGATIVE Urine Ketones 40 H Urine Occult Blood TRACE-LYSE Urine Nitrite POSITIVE H Urine Bilirubin NEGATIVE Urine Urobilinogen 0.2 (NORMAL) Ur Leukocyte Esterase NEGATIVE Urine RBC 6-10 H Urine WBC 0-3 Ur Squamous Epith Cells RARE Squamous Urine Bacteria Few Urine Casts 3-5 Hyaline Casts Ur Microscopic Review INDICATED Urine Culture Comments INDICATED - Rads (name of study) CT head without Radiology: Prelim report reviewed (Impression: 1. No acute intracranial process. 2 Small left parietal scalp hematoma without fracture. 3 New air-fluid levels in the left sided paranasal sinuses. Clinical correlation for acute sinusitis is recommended.), EMP read indepedently, See rad report CT cervical spine without Radiology: Prelim report reviewed (Impression: No acute cervical spine fracture.), EMP read indepedently, See rad report Procedures - Laceration (location) right moravian Length in cm: 2 Wound type: Stellate, Flap, Into subcut fat, Clean Neurovascular status: Sensory intact, Motor intact, Vascular intact Anesthesia: Lidocaine 1%, With bicarb Wound Preparation: Hibiclens, Irrigated copiously NS, Wound explored, To the base Skin layer closure: Nylon, Interrupted, Size #-0 - enter number (5-0) Other: Patient tolerated well, No complications, Neurovascular intact, Dressing applied, Tetanus UTD Complexity: Simple PD MEDICAL DECISION MAKING - ED course Complexity details: reviewed old records, reviewed results, re-evaluated patient, considered differential, d/w patient, d/w family ED course: 88-year-old female with a history of advanced dementia has had a fall in her home today lacerated her right moravian and [facility] shut with thick yellow goo. According to her who presents to the emergency department earlier in the day at 3 PM she did not have this thick yellow due to her eyes. She has developed a cough as well. On CT exam she has evidence of obvious left maxillary and ethmoid sinusitis and here in the emergency department she is administered Rocephin and dexamethasone intravenously. Her eyes are cleaned and Maxitrol ophthalmic ointment is applied. Her wounds are cleansed and her right moravian laceration is sutured. Today her urine does not appear infected on microscopic examination. We will place her on Cefdinir for the sinusitis. Departure - Departure Disposition: 01 Home, Self Care Clinical Impression: Head injury due to trauma Qualifiers: Encounter type: initial encounter Qualified Code(s): S09.90XA - Unspecified i njury of head, initial encounter Laceration of moravian Qualifiers: Encounter type: initial encounter Qualified Code(s): S01.81XA - Laceration without foreign body of other part of head, initial encounter Conjunctivitis Qualifiers: Conjunctivitis type: acute Acute conjunctivitis type: bacterial Laterality: bilateral Qualified Code(s): H10.33 - Unspecified acute conjunctivitis, bilateral Sinusitis Qualifiers: Sinusitis location: maxillary Chronicity: acute Recurrence: non-recurrent Qualified Code(s): J01.00 - Acute maxillary sinusitis, unspecified Condition: Stable Instructions: ED Conjunctivitis Bacterial, ED Head Injury Closed, ED Laceration Facial Sutr Tape, ED Sinusitis Abx Tx Follow-Up: Landy Vasquez MD [Provider Admit Priv/Credential] - Prescriptions: Cefdinir 300 mg PO BID #20 capsule Neomycin/Poly/Dexam Ophth Oint [Maxitrol Ophth Oint] 1 gm EACHEYE TID #2 tube Comments: sutures will need to be removed in 5-7 days
[2018-08-26] MEDS ORDERED: DEXAMETHASONE 10 MG/ML VIAL IVP STA (00:41)
[2018-08-26] MEDS ORDERED: cefTRIAXone 1 GM in SODIUM CHLORIDE 0.9% MINIBAG 100 ML IV STA (00:41)
[2018-08-26] MEDS ORDERED: BUFFERED LIDOCAINE 10 ML SYRINGE SUBQ STA (00:43)
[2018-08-26 00:46] LABS: BILIRUBIN,URINE NEGATIVE (NEGATIVE); GLUCOSE, URINE (UA) NEGATIVE (NEGATIVE); KETONES,URINE (UA) 40 mg/dL (NEGATIVE); LEUKOCYTE ESTERASE, URINE NEGATIVE (NEGATIVE); NITRITE,URINE POSITIVE (NEGATIVE); OCCULT BLOOD,URINE TRACE-LYSE (NEGATIVE); PH,URINE 7.5 PH (5.0-7.5); PROTEIN,URINE NEGATIVE (NEGATIVE); UROBILINOGEN,URINE 0.2 (NORMAL) E.U./dL (NORMAL)
[2018-08-26 00:48] LABS: CLARITY,URINE CLEAR (CLEAR)
[2018-08-26 00:55] LABS: BACTERIA,URINE Few /HPF (None Seen); SQUAMOUS EPITHELIAL CELL,UR RARE Squamous (<= Few)
[2018-08-26 00:56] LABS: CASTS, URINE 3-5 Hyaline Casts /LPF
--- NOTE | 2018-08-26 01:12 | CT Report ---
Reason: fall posterior and right anterior bruising/lac Procedure Date: 08/26/2018 Accession Number: [id number] / [id number] Procedure: CT - HEAD WO CPT Code: FULL RESULT: EXAM: CT HEAD EXAM DATE: 08/26/2018 12:16 AM. CLINICAL HISTORY: Head pain, trauma. COMPARISON: HEAD W/O 11/13/2016 11:31 AM. TECHNIQUE: Multiaxial CT images were obtained from the foramen magnum to the vertex. Reformats: Sagittal and coronal. IV contrast: None. In accordance with CT protocol optimization, one or more of the following dose reduction techniques were utilized for this exam: automated exposure control, adjustment of mA and/or KV based on patient size, or use of iterative reconstructive technique. FINDINGS: Parenchyma: No intraparenchymal hemorrhage. No evidence of mass, midline shift, or CT findings of acute infarction. Duarte-white differentiation is distinct. Mild diffuse chronic microangiopathic white matter changes are evident. Extraaxial Spaces: Normal for age. No subdural or epidural collections identified. Ventricles: The ventricles and cortical sulci are moderately enlarged, consistent with age-related tissue loss. Sinuses and orbits: New air-fluid levels are present in the left maxillary and frontal sinuses. The orbits and mastoid sinuses are unremarkable. Bones: A small left parietal scalp hematoma is present with an underlying calvarial fracture. Other: Mild intracranial atherosclerosis is present. IMPRESSION: 1. No acute intracranial process. 2. Small left parietal scalp hematoma without calvarial fracture. 3. New air-fluid levels in the left-sided paranasal sinuses. Clinical correlation for acute sinusitis is recommended. RADIA
--- NOTE | 2018-08-26 01:16 | CT Report ---
Reason: fall head injury Procedure Date: 08/26/2018 Accession Number: [id number] / [id number] Procedure: CT - CERVICAL SPINE WO CPT Code: FULL RESULT: EXAM: CT CERVICAL SPINE WITHOUT CONTRAST DATE: 08/26/2018 12:42 AM. HISTORY: Head pain, trauma. COMPARISONS: None. TECHNIQUE: Thin-section axial images were acquired of the cervical spine without contrast. Post-processing: Coronal and sagittal reformats. Other: None. In accordance with CT protocol optimization, one or more of the following dose reduction techniques were utilized for this exam: automated exposure control, adjustment of mA and/or KV based on patient size, or use of iterative reconstructive technique. FINDINGS: Alignment: Retrolisthesis at C4-C5 and C5-C6 measure 1-2 mm. There is no scoliosis. Bones: No acute cervical spine fracture is identified. Mild chronic appearing anterior wedge compression fractures are noted at T1 and T2. Interspace Levels/Facets: C1-C2: Moderate degenerative changes are present anteriorly without craniocervical stenosis. C2-C3: Left-sided facet arthropathy is present without spinal canal or foraminal stenosis. C3-C4: There is moderate left foraminal narrowing due to uncovertebral hypertrophy and facet arthropathy. The spinal canal and right foramen are patent. C4-C5: A posterior disk osteophyte complex results in mild spinal canal stenosis. There is mild bilateral foraminal narrowing due to uncovertebral hypertrophy. C5-C6: A posterior disk osteophyte complex results in mild spinal canal stenosis. There is moderate right and mild left foraminal narrowing due to uncovertebral hypertrophy. C6-C7: A posterior disk osteophyte complex results in mild spinal canal stenosis. There is mild left foraminal narrowing due to uncovertebral hypertrophy. The right foramen is patent. C7-T1: Unremarkable. Musculature: There is moderate diffuse fatty atrophy of the posterior paraspinal muscles. Other: No acute abnormality is seen in the remaining soft tissues of the neck. The lung apices are clear. IMPRESSION: No acute cervical spine fracture. RADIA
[2018-08-26 02:00] VITALS: BP 1565/77
== END 2018-08-26 02:02 | disposition home or self-care (01) ==
LOC: EDUNIT# → ED 23:48
DX: S01.81XA Laceration without foreign body of other part of head, initial encounter (principal); S00.03XA Contusion of scalp, initial encounter; S09.90XA Unspecified injury of head, initial encounter; W06.XXXA Fall from bed, initial encounter; Y92.122 Bedroom in nursing home as the place of occurrence of the external cause; Z91.81 History of falling; H10.33 Unspecified acute conjunctivitis, bilateral; J01.00 Acute maxillary sinusitis, unspecified; J01.20 Acute ethmoidal sinusitis, unspecified; Z87.891 Personal history of nicotine dependence; F03.90 Unspecified dementia, unspecified severity, without behavioral disturbance, psychotic disturbance, mood disturbance, and anxiety
CPT/HCPCS: 12011; 70450; 72125; 81001; 87086; 96365; 96375; 99283; A9270; 81003; 87077; 87181

== ENCOUNTER 2019-06-17 18:57 | Outpatient (CLI) | payer MEDICARE, OTHER | END 2019-06-17 18:58 | disposition critical access hospital (66) | LOC: EMS 18:57 | PROVIDERS: ATTEND Surgery | DX: R56.9 Unspecified convulsions (principal) | CPT/HCPCS: A0425; A0429 ==

== ENCOUNTER 2019-06-17 19:13 | Emergency (ER) | payer MEDICARE, OTHER ==
[2019-06-17] MEDS ORDERED: SODIUM CHLORIDE 0.9% 500 ML IV ONE (19:22)
--- NOTE | 2019-06-17 19:33 | ED Physician Documentation ---
History of Present Illness - Stated complaint Stated Complaint: SZ - History obtained from History obtained from: EMS - History of Present Illness Timing: Prior to arrival Pain level max: 0 Pain level now: 0 - Additonal information Additional information: 88 year old female with hx of Alzheimer's dementia, osetoarthritis, melanoma who lives in a memory care facility, who presents to the emergency department with a witnessed episode of seizure. Patient was helped by staff to bed and staff noted that the patient's legs started shaking and then she had a tonic clonic seizure for 35-40 seconds. Post ictal period was witnessed. There was no report of recent fall. Patient had a fall in 08/2018 and was evaluated in the ED. At the time, CT head did not show acute intracranial abnormality. PATIENT TAKES MACROBID FOR UTI PROPHYLAXIS . 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 HEENT: Tonsil/Adenoidectomy Derm: Skin cancer surgery - Present Medications Home Medications: Ambulatory Orders Medication Instructions Recorded Confirmed Acetaminophen [Tylenol Extra 1 tab ORAL BID 12/12/16 12/12/16 Strength] QUEtiapine [SEROquel] 50 mg ORAL BID 12/12/16 12/12/16 Neomycin/Poly/Dexam Ophth Oint 1 gm EACHEYE TID #2 tube 08/26/18 [Maxitrol Ophth Oint] Cephalexin [Keflex] 500 mg PO BID 7 Days #14 capsule 06/17/19 Furosemide 20 mg PO DAILY 06/17/19 06/17/19 levETIRAcetam [Keppra] 250 mg PO BID #60 tablet 06/17/19 - Allergies Allergies/Adverse Reactions: Allergies Allergy/AdvReac Type Severity Reaction Status Date / Time No Known Drug Allergies Allergy Verified 12/12/16 21:08 - Social History Does the pt smoke?: No Smoking Status: Former smoker Does the pt drink ETOH?: Yes Does the pt have substance abuse?: No - Immunizations Immunizations are current?: Yes - POLST Patient has POLST: No PD ED PE NORMAL - General General: No acute distress, Other (FRAGILE; ALERT TO SELF ONLY. ) - HEENT HEENT: Atraumatic, PERRL, EOMI - Neck Neck: Supple, no meningeal sign - Cardiac Cardiac: RRR - Respiratory Respiratory: No respiratory distress - Abdomen Abdomen: Normal bowel sounds - Back Back: No CVA TTP - Derm Derm: Normal color - Extremities Extremities: No deformity, No tenderness to palpate - Neuro Neuro: No motor deficit, No sensory deficit Eye Opening: Spontaneous Motor: Obeys Commands Verbal: Confused GCS Score: 14 Results - Vitals Vitals: Vital Signs - 24 hr 06/17/19 06/17/19 19:29 22:24 Temperature 36.6 C 36.4 C L Heart Rate 62 64 Respiratory 14 12 Rate Blood Pressure 127/67 149/76 H O2 Saturation 100 96 Oxygen O2 Source Room air - EKG (time done) 1938 Rate: Rate (enter#) (60) Rhythm: NSR [place]: Normal Intervals: Normal GA QRS: Normal Ischemia: Non specific changes - Labs Labs: Laboratory Tests 06/17/19 06/17/19 06/17/19 19:31 19:31 19:31 WBC 5.7 RBC 3.87 L Hgb 12.0 Hct 37.0 MCV 95.6 MCH 31.0 MCHC 32.4 RDW 12.9 Plt Count 211 MPV 11.0 H Neut # (Auto) 3.2 Lymph # (Auto) 1.4 L [place] # (Auto) 0.6 Eos # (Auto) 0.5 Baso # (Auto) 0.1 Absolute Nucleated RBC 0.00 Nucleated RBC % 0.0 Sodium 143 Potassium 4.4 Chloride 102 Carbon Dioxide 32 Anion Gap 9.0 BUN 36 H Creatinine 1.5 H Estimated GFR (MDRD) 33 L Glucose 101 H Calcium 9.1 Magnesium 2.5 Total Bilirubin 0.6 AST 20 ALT 15 Alkaline Phosphatase 45 Troponin I High Sens 4.2 Total Protein 6.7 Albumin 3.9 Globulin 2.8 Albumin/Globulin Ratio 1.4 Lipase 30 TSH Urine Color Urine Clarity Urine pH Ur Specific [place] Urine Protein Urine Glucose (UA) Urine Ketones Urine Occult Blood Urine Nitrite Urine Bilirubin Urine Urobilinogen Ur Leukocyte Esterase Urine RBC Urine WBC Ur Squamous Epith Cells Urine Bacteria Urine Casts Ur Microscopic Review Urine Culture Comments 06/17/19 06/17/19 19:31 20:45 WBC RBC Hgb Hct MCV MCH MCHC RDW Plt Count MPV Neut # (Auto) Lymph # (Auto) [place] # (Auto) Eos # (Auto) Baso # (Auto) Absolute Nucleated RBC Nucleated RBC % Sodium Potassium Chloride Carbon Dioxide Anion Gap BUN Creatinine Estimated GFR (MDRD) Glucose Calcium Magnesium Total Bilirubin AST ALT Alkaline Phosphatase Troponin I High Sens Total Protein Albumin Globulin Albumin/Globulin Ratio Lipase TSH 2.08 Urine Color YELLOW Urine Clarity CLEAR Urine pH 8.5 H Ur Specific [place] 1.015 Urine Protein NEGATIVE Urine Glucose (UA) NEGATIVE Urine Ketones NEGATIVE Urine Occult Blood NEGATIVE Urine Nitrite POSITIVE H Urine Bilirubin NEGATIVE Urine Urobilinogen 0.2 (NORMAL) Ur Leukocyte Esterase NEGATIVE Urine RBC None Seen Urine WBC 0-3 Ur Squamous Epith Cells RARE Squamous Urine Bacteria Many H Urine Casts 0-2 Hyaline Casts Ur Microscopic Review INDICATED Urine Culture Comments INDICATED PD MEDICAL DECISION MAKING - ED course Complexity details: re-evaluated patient, d/w campaign consultant ED course: 88 year old with Alzheimer's dementia, who lives in a memory care facility presented to the emergency department with a new onset of seizure. CT head showed no significant intracranial abnormality. Patient remained stable and seizure free. Labs were reviewed and electrolytes were unremarkable. I discussed the case with Dr. Alayna Wood, neurologist at [facility]. She recommended the patient start on Keppra 250 mg twice a day. She recommended to monitor for behavioral changes as Keppra can do so. If that was the case, patient would need to discontinue Keppra. She was found to have an UTI. I will change her to Keflex as she is currently on macrobid for UTI prophylaxis. Outpatient follow up with PCP in 3-5 days were recommended. Patient was discharged in stable condition. Departure - Departure Disposition: 01 Home, Self Care Clinical Impression: New onset seizure, Urinary tract infection Condition: Stable Instructions: ED Seizure New Onset Unk Cause Ch, ED Bladder Infec Cystitis Female Ch Follow-Up: Landy Vasquez MD [Primary Care Provider] - Within 3 Days Prescriptions: Cephalexin [Keflex] 500 mg PO BID 7 Days #14 capsule levETIRAcetam [Keppra] 250 mg PO BID #60 tablet Comments: PLEASE STOP TAKING MACROBID. TAKE KEFLEX TWICE A DAY FOR A TOTAL OF 7 DAYS FOR YOUR URINARY TRACT INFECTION. PLEASE FOLLOW UP WITH YOUR DOCTOR IN 3 DAYS. PLEASE RETURN TO THE EMERGENCY DEPARTMENT IF A FEVER OF 100.4 OR GREATER DEVELOPS, ANY NEW OR CONCERNING SYMPTOMS DEVELOP. Discharge Date/Time: 06/17/19 22:40
[2019-06-17 19:35] LABS: BASOPHILS # (AUTO) 0.1 10^3/uL (0.0-0.1); BASOPHILS % (AUTO) 1.1 %; EOSINOPHILS # (AUTO) 0.5 10^3/uL (0.0-0.7); EOSINOPHILS % (AUTO) 8.4 %; LYMPHOCYTES # (AUTO) 1.4 10^3/uL (1.5-3.5); LYMPHOCYTES % (AUTO) 24.9 %; MEAN CORPUSCULAR HGB CONC 32.4 g/dL (32.0-36.0); MEAN CORPUSCULAR VOLUME 95.6 fL (81.0-99.0); MONOCYTES # (AUTO) 0.6 10^3/uL (0.0-1.0); MONOCYTES % (AUTO) 10.2 %; NEUTROPHILS # (AUTO) 3.2 10^3/uL (1.5-6.6); NEUTROPHILS % (AUTO) 55.2 %; PLT - PLATELET COUNT 211 10^3/uL (130-450); RED BLOOD COUNT 3.87 10^6/uL (4.20-5.40); RED CELL DISTRIBUTION WIDTH 12.9 % (12.0-15.0); WHITE BLOOD COUNT 5.7 x10^3/uL (4.8-10.8)
[2019-06-17 19:49] LABS: ALBUMIN 3.9 g/dL (3.2-5.5); ALBUMIN/GLOBULIN RATIO 1.4 (1.0-2.2); BILIRUBIN,TOTAL 0.6 mg/dL (0.2-1.0); CALCIUM 9.1 mg/dL (8.5-10.3); CREATININE 1.5 mg/dL (0.4-1.0); MAGNESIUM 2.5 mg/dL (1.7-2.8); TOTAL PROTEIN 6.7 g/dL (6.7-8.2)
--- NOTE | 2019-06-17 19:52 | XRAY Report ---
Reason: cough Procedure Date: 06/17/2019 Accession Number: [id number] / [id number] Procedure: XR - Chest 1 View X-Ray CPT Code: 91523 Final Report FULL RESULT: EXAM: CHEST RADIOGRAPHY EXAM DATE: 06/17/2019 07:32 PM. CLINICAL HISTORY: Cough. COMPARISON: None. TECHNIQUE: 1 view. FINDINGS: Lungs/Pleura: No dense consolidation. No large effusion or pneumothorax. No pulmonary edema. Mediastinum: Heart and mediastinal contours are unremarkable. Other: None. IMPRESSION: No acute radiographic pulmonary abnormalities. RADIA
--- NOTE | 2019-06-17 20:23 | CT Report ---
Reason: new onset seizure Procedure Date: 06/17/2019 Accession Number: [id number] / [id number] Procedure: CT - HEAD WO CPT Code: Final Report FULL RESULT: EXAM: CT HEAD EXAM DATE: 06/17/2019 07:56 PM. CLINICAL HISTORY: New onset seizure. COMPARISON: CERVICAL SPINE W/O 08/26/2018 12:16 AM. TECHNIQUE: Multiaxial CT images were obtained from the foramen magnum to the vertex. Reformats: Sagittal and coronal. IV contrast: None. In accordance with CT protocol optimization, one or more of the following dose reduction techniques were utilized for this exam: automated exposure control, adjustment of mA and/or KV based on patient size, or use of iterative reconstructive technique. FINDINGS: Parenchyma: No intraparenchymal hemorrhage. No evidence of mass, midline shift, or CT findings of infarction. Duarte-white differentiation is distinct. Extraaxial Spaces: Normal for age. No subdural or epidural collections identified. Ventricles: Normal in size and position. Sinuses and Orbits: Imaged paranasal sinuses, orbits, and mastoids show no significant abnormality. Bones: No evidence of fracture or calvarial defect. Other: None. IMPRESSION: No significant intracranial abnormality. RADIA
[2019-06-17 20:51] LABS: BILIRUBIN,URINE NEGATIVE (NEGATIVE); GLUCOSE, URINE (UA) NEGATIVE (NEGATIVE); KETONES,URINE (UA) NEGATIVE (NEGATIVE); LEUKOCYTE ESTERASE, URINE NEGATIVE (NEGATIVE); NITRITE,URINE POSITIVE (NEGATIVE); OCCULT BLOOD,URINE NEGATIVE (NEGATIVE); PH,URINE 8.5 PH (5.0-7.5); PROTEIN,URINE NEGATIVE (NEGATIVE); UROBILINOGEN,URINE 0.2 (NORMAL) E.U./dL (NORMAL)
[2019-06-17 20:52] LABS: CLARITY,URINE CLEAR (CLEAR)
[2019-06-17 20:58] LABS: RBC,URINE None Seen /HPF (0-5)
[2019-06-17 20:59] LABS: BACTERIA,URINE Many /HPF (None Seen); CASTS, URINE 0-2 Hyaline Casts /LPF; SQUAMOUS EPITHELIAL CELL,UR RARE Squamous (<= Few)
[2019-06-17] MEDS ORDERED: cefTRIAXone 1 GM in SODIUM CHLORIDE 0.9% MINIBAG 100 ML IV STA (21:04)
[2019-06-17 22:24] VITALS: BP 149/76
== END 2019-06-17 22:40 | disposition home or self-care (01) ==
LOC: ED 19:13
DX: R56.9 Unspecified convulsions (principal); N39.0 Urinary tract infection, site not specified; G30.9 Alzheimer's disease, unspecified; F02.80 Dementia in other diseases classified elsewhere, unspecified severity, without behavioral disturbance, psychotic disturbance, mood disturbance, and anxiety; M19.90 Unspecified osteoarthritis, unspecified site; Z85.820 Personal history of malignant melanoma of skin; Z87.891 Personal history of nicotine dependence
CPT/HCPCS: 36415; 51701; 70450; 71045; 80053; 81001; 81003; 83690; 83735; 84443; 84484; 85025; 87086; 87181; 93005; 99281